=== PATIENT | male | born 2000 | race Hispanic/Latino ===

== ENCOUNTER 2023-03-13 20:31 | Emergency (ER) | payer OTHER ==
[~2023-03-13] VITALS: Ht 175.3 cm; Wt 108.2 kg
[2023-03-13] MEDS ORDERED: predniSONE 20 MG TAB PO ONE (21:25)
[2023-03-13] MEDS ORDERED: methocarbamoL 500 MG TAB PO ONE (21:25)
[2023-03-13] MEDS ORDERED: MEDR4PAK PO (23:21)
[2023-03-13] MEDS ORDERED: IBUP-1022 PO (23:21)
[2023-03-13] MEDS ORDERED: METH-1164 PO (23:21)
[2023-03-13 23:26] VITALS: BP 133/82; TEMP 98.3; O2SAT 99
== END 2023-03-13 23:28 | disposition home or self-care (01) ==
LOC: M ED 20:31
DX: M51.16 Intervertebral disc disorders with radiculopathy, lumbar region (principal); Z79.1 Long term (current) use of non-steroidal anti-inflammatories (NSAID); Z79.891 Long term (current) use of opiate analgesic
CPT/HCPCS: 72131; 99283; J7512